=== PATIENT | female | born 1970 | race Caucasian/White ===

== ENCOUNTER 2021-05-07 19:22 | Emergency (ER) | payer OTHER ==
[~2021-05-07] VITALS: Ht 175.2 cm; Wt 99.8 kg
[~2021-05-07 19:22] MED LIST: HYDROCODONE BIT1 T11 PO; MOTRIN800 MG PO; ROBAXIN750 MG PO; SEPTRA DS 800 M1 TAB PO; TRAMADOL HCL50 MG PO
== END 2021-05-07 22:58 | disposition home or self-care (01) ==
LOC: ED 19:22
DX: S52.501A Unspecified fracture of the lower end of right radius, initial encounter for closed fracture (principal); Z98.51 Tubal ligation status; Z98.890 Other specified postprocedural states; W19.XXXA Unspecified fall, initial encounter; Y93.89 Activity, other specified; Y92.096 Garden or yard of other non-institutional residence as the place of occurrence of the external cause; Y99.8 Other external cause status

== ENCOUNTER 2021-12-16 11:01 | Emergency (ER) | payer OTHER ==
[~2021-12-16] VITALS: Ht 175.2 cm; Wt 95.3 kg
[2021-12-16] MEDS ORDERED: NAPROXEN250 MG PO (14:39)
[2021-12-16] MEDS ORDERED: TYLENOL325 M1 PO (14:39)
== END 2021-12-16 14:50 | disposition home or self-care (01) ==
LOC: ED 11:01
DX: S43.004A Unspecified dislocation of right shoulder joint, initial encounter (principal); Z90.49 Acquired absence of other specified parts of digestive tract; Z98.51 Tubal ligation status; Z98.890 Other specified postprocedural states; W18.39XA Other fall on same level, initial encounter; Y93.89 Activity, other specified; Y92.89 Other specified places as the place of occurrence of the external cause; Y99.8 Other external cause status

== ENCOUNTER 2024-07-30 13:54 | Emergency (ER) | payer BC ==
[~2024-07-30] VITALS: Ht 175.2 cm; Wt 99.3 kg
[~2024-07-30 13:54] MED LIST changes: +NAPROXEN250 MG PO; +TYLENOL325 M1 PO
[2024-07-30 15:05] LABS: BASO # 0.1 10*3/uL (0.0-0.1); BASO % 0.4 % (0.0-1.0); EOS # 0.1 10*3/uL (0.0-0.4); EOS % 0.8 % (1.0-4.0); HEMATOCRIT 37.9 % (37.0-47.0); LYMPH # 1.1 10*3/uL (1.3-4.4); LYMPH % 8.3 % (27.0-41.0); MEAN CELL VOLUME 75.5 fl (81.0-99.0); MEAN CORPUSCULAR HGB 23.1 pg (27.0-31.0); MEAN CORPUSCULAR HGB CONC 30.6 g/dl (33.0-37.0); MONO # 1.1 10*3/uL (0.1-1.0); MONO % 8.6 % (3.0-9.0); NEUT # 10.5 10*3/uL (2.3-7.9); NEUT % 80.7 % (47.0-73.0); PLATELET COUNT AUTOMATED 350 10*3/uL (130-400); RED BLOOD COUNT 5.02 10*6/uL (4.10-5.10); RED CELL DISTRI WIDTH 19.6 % (0-14.5)
[2024-07-30 15:08] LABS: BILIRUBIN Negative (Negative); BLOOD Negative (Negative); CLARITY Clear (Clear); COLOR Yellow (Yellow); GLUCOSE Negative (Negative); KETONE 1+ (Negative); LEUKO ESTERASE 1+ (Negative); NITRITE Negative (Negative); PH 6.5 (4.5-8.0); SPECIFIC GRAVITY 1.015 (1.001-1.030)
[2024-07-30 15:27] LABS: BUN 9 mg/dl (9-23); CHLORIDE 103 mmol/L (98-107); POTASSIUM 3.4 mmol/L (3.4-5.1)
[2024-07-30 15:47] LABS: BACTERIA 1+; EPITHELIAL CELLS 16-20; MUCOUS 1+; RBC 0-2 rbc/hpf (0-2)
[2024-07-30] MEDS ORDERED: AMOX-CLAV 875-1 EACH PO (16:19)
== END 2024-07-30 16:39 | disposition home or self-care (01) ==
LOC: ED 13:54
PROVIDERS: Physician Assistant Medical
DX: J18.9 Pneumonia, unspecified organism (principal); Z20.822 Contact with and (suspected) exposure to COVID-19; N39.0 Urinary tract infection, site not specified; D64.9 Anemia, unspecified; Z98.51 Tubal ligation status; Z90.49 Acquired absence of other specified parts of digestive tract; Z98.890 Other specified postprocedural states